=== PATIENT | male | born 1945 | race Caucasian/White ===

== ENCOUNTER → 2025-07-12 | Outpatient (CLI) | payer MEDICARE, SELFPAY ==
[2025-07-12 13:43] VITALS: PULSE 70; PULSE 76; PULSE 80; PULSE 86; PULSE 88; PULSE 90; PULSE 91; PULSE 93; O2SAT 92; O2SAT 94; O2SAT 96; O2SAT 97
--- NOTE | 2025-07-13 12:30 | PCM.PSN.6M ---
PSN 6 Minute Walk Test 6 Minute Walk Test 6 Minute Walk Test: 6 Minute Walk Test PSN:6-Minute Walk Test Start: 07/12/25 13:43 Freq: Status: Active Protocol: [id number] Document 07/12/25 13:43 [facility] (Rec: 07/12/25 13:48 [facility] [id number]) 6 Minute Walk Test Date Performed 07/12/25 Time Performed 13:30 Height 5 ft 11 in Weight: 235 lb Weight in Pounds [address]: Aryan Pearson Assistive device None used: Pre-test Oxygen Delivery Room Air Method Pulse Ox (%) 96 Pulse Rate (60-100 70 beats/min) Dyspnea [place] Scale ( 3 0-10) Exertion [place] Scale 6 (6-20) 1st minute Oxygen Delivery Room Air Method Pulse Ox (%) 97 Pulse Rate (60-100 80 beats/min) Dyspnea [place] Scale ( 4 0-10) Number of Rests 0 Taken Reported Symptoms Increased Work of Breathing 2nd minute Oxygen Delivery Room Air Method Pulse Ox (%) 96 Pulse Rate (60-100 86 beats/min) Dyspnea [place] Scale ( 4 0-10) Number of Rests 0 Taken Reported Symptoms Increased Work of Breathing 3rd minute Oxygen Delivery Room Air Method Pulse Ox (%) 94 Pulse Rate (60-100 88 beats/min) Dyspnea [place] Scale ( 4 0-10) Exertion [place] Scale 6 (6-20) Number of Rests 0 Taken Reported Symptoms Increased Work of Breathing 4th minute Oxygen Delivery Room Air Method Pulse Ox (%) 92 Pulse Rate (60-100 90 beats/min) Dyspnea [place] Scale ( 5 0-10) Number of Rests 0 Taken Reported Symptoms Increased Work of Breathing 5th minute Oxygen Delivery Room Air Method Pulse Ox (%) 94 Pulse Rate (60-100 91 beats/min) Dyspnea [place] Scale ( 5 0-10) Number of Rests 0 Taken Reported Symptoms Increased Work of Breathing 6th minute Oxygen Delivery Room Air Method Pulse Ox (%) 96 Pulse Rate (60-100 93 beats/min) Dyspnea [place] Scale ( 5 0-10) Number of Rests 0 Taken Reported Symptoms Increased Work of Breathing Post-test Oxygen Delivery Room Air Method Pulse Ox (%) 97 Pulse Rate (60-100 76 beats/min) Dyspnea [place] Scale ( 3 0-10) Exertion [place] Scale 6 (6-20) Full Laps Walked 20 Partial Lap, Number 0 of Tiles Walked Total Distance 1180 Walked (ft) Interpretation Interpretation: The patient ambulated 1180 feet over the course of 6 minutes beginning on room air without assistive devices. Pretesting oxygen saturation was noted to be 96% on room air. With ambulation, the mary oxygen saturation was 92%. This represents a significant exertional oxygen desaturation, consistent with a pulmonary limitation to exercise tolerance. Recommendations Recommendations: There is no indication for the use of supplemental oxygen at this time. However, close interval follow-up is recommended, given the degree of oxygen desaturation noted during this study.
== END | disposition home or self-care (01) ==
PROVIDERS: Referring Provider Internal Medicine Critical Care Medicine; Visit Provider Internal Medicine Critical Care Medicine
DX: J98.4 Other disorders of lung (principal)
CPT/HCPCS: 94618

== ENCOUNTER → 2025-07-26 | Outpatient (CLI) | payer MEDICARE, SELFPAY ==
--- NOTE | 2025-07-26 13:50 | ECHOD_ITS ---
Reason For Study ECHO/Echo Complete
--- NOTE | 2025-07-26 14:30 | CT_ITS ---
PROCEDURE: CT/Chest without Contrast
== END | disposition home or self-care (01) ==
LOC: CVS 13:43
PROVIDERS: Referring Provider Internal Medicine Critical Care Medicine; Visit Provider Internal Medicine Critical Care Medicine
DX: R06.02 Shortness of breath (principal); J98.4 Other disorders of lung
CPT/HCPCS: 71250; 93306; Q9967